=== PATIENT | female | born 1950 | race Caucasian/White ===

== ENCOUNTER → 2017-06-20 | Outpatient (CLI) | payer OTHER ==
[~2017-06-20] MED LIST: CONESTTC; Cheratussin AC118 ML PO; ERYT.5TO BOTHEYES; ESTMET PO; Imitrex50 MG; LASTACAFT3 ML OP; Multiple Vitam1 EAC1 PO; OXYACE5T PO; PROM25 PO; SUMA25 PO; Sudogest30 MG PO; VITAMIN D5000 UNIT PO
== END | disposition home or self-care (01) ==
LOC: PLD 13:36 → LAB SHORT 13:36
DX: D22.5 Melanocytic nevi of trunk (principal)
CPT/HCPCS: 88305

== ENCOUNTER → 2018-07-11 | Outpatient (CLI) | payer OTHER ==
[2018-07-13 16:06] LABS: HPV 16 Negative (Negative); HPV 18 Negative (Negative); HPV OTHER HR TYPES Negative (Negative)
== END | disposition home or self-care (01) ==
LOC: LAB 09:36 → LAB SHORT 09:36
PROVIDERS: Nurse Practitioner Obstetrics & Gynecology
DX: Z01.419 Encounter for gynecological examination (general) (routine) without abnormal findings (principal); Z91.89 Other specified personal risk factors, not elsewhere classified
CPT/HCPCS: 87624; G0123

== ENCOUNTER → 2018-07-17 | Outpatient (CLI) | payer OTHER | END | disposition home or self-care (01) | LOC: PLD 13:50 → LAB SHORT 13:50 | DX: D22.5 Melanocytic nevi of trunk (principal) | CPT/HCPCS: 88305 ==

== ENCOUNTER 2018-08-08 09:23 | Emergency (ER) | payer OTHER ==
[~2018-08-08] VITALS: Ht 170.2 cm; Wt 67.1 kg
[2018-08-08 10:03] LABS: BASOPHILS ABSOLUTE AUTO 0.02 K/mm3 (0.00-0.23); BASOPHILS PERCENT AUTO 0 % (0-2); EOSINOPHILS PERCENT AUTO 5 % (0-6); Hematocrit 44.7 % (33.0-51.0); Hemoglobin 14.3 g/dL (11.5-16.0); IMMATURE GRAN ABSOLUTE AUTO 0.02 K/mm3 (0.00-0.10); IMMATURE GRAN PERCENT AUTO 0 % (0-1); LYMPHOCYTES ABSOLUTE AUTO 2.33 K/mm3 (0.84-5.20); LYMPHOCYTES PERCENT AUTO 37 % (21-46); MONOCYTES ABSOLUTE AUTO 0.44 K/mm3 (0.16-1.47); MONOCYTES PERCENT AUTO 7 % (4-13); Mean Corpuscular HGB 29.8 pg (26.0-34.0); Mean Corpuscular Volume 93 fL (80-100); Mean Platelet Volume 10.9 fL (9.1-12.4); NEUTROPHILS ABSOLUTE AUTO 3.17 K/mm3 (1.96-9.15); NEUTROPHILS PERCENT AUTO 51 % (41-73); Platelet Count 220 K/mm3 (150-400); RDW Coefficient Variation 12.8 % (11.7-14.2); RDW Standard Deviation 43.9 fL (35.1-46.3); White Blood Cell Count 6.28 K/mm3 (4.00-11.30)
[2018-08-08 10:27] LABS: Alanine Aminotransfer (ALT/SGP 24 U/L (12-78); Albumin/Globulin Ratio 1.1 (0.8-1.8); Alk Phos 79 U/L (50-136); Anion Gap 6 mmol/L (6-16); Aspartate Aminotrans (AST/SGOT 14 U/L (12-37); Bilirubin, Total 0.5 mg/dL (0.1-1.0); Blood Urea Nitrogen 14 mg/dL (8-24); Bun/Creatinine Ratio 21.4 (12.0-20.0); CO2, Blood 27 mmol/L (21-32); Calcium, Blood 8.9 mg/dL (8.5-10.1); Chloride, Blood 108 mmol/L (98-108); Creatinine, Blood 0.65 mg/dL (0.40-1.00); Globulin, Blood 3.5 g/dL (2.2-4.0); Glomerular Filtration Rate >60 (60-); Glucose, Blood 92 mg/dL (70-99); Potassium, Blood 3.8 mmol/L (3.5-5.5); Sodium, Blood 141 mmol/L (136-145); Total Protein, Blood 7.5 g/dL (6.4-8.2); Troponin I <0.015 ng/mL (0.000-0.040)
== END 2018-08-08 13:07 | disposition home or self-care (01) ==
LOC: ER 09:23
PROVIDERS: Physician Assistant
DX: R07.9 Chest pain, unspecified (principal); Z79.899 Other long term (current) drug therapy; G43.909 Migraine, unspecified, not intractable, without status migrainosus
CPT/HCPCS: 36415; 71046; 80053; 83690; 84484; 85025; 99285-25

== ENCOUNTER 2020-05-21 08:54 | Inpatient (IN) | payer OTHER, MEDICARE ==
[~2020-05-21] VITALS: Ht 170.2 cm; Wt 71.7 kg
[~2020-05-21 08:54] MED LIST changes: -Imitrex50 MG; +Imitrex50 MG PO
[2020-05-21 10:53] LABS: Influenza A, PCR NEGATIVE (NEGATIVE); Influenza B, PCR NEGATIVE (NEGATIVE); Resp Syncytial Virus, PCR NEGATIVE (NEGATIVE); SARS-Cov-2 (COVID-19) PCR, MMC NEGATIVE (NEGATIVE)
[2020-05-21 11:45] LABS: BASOPHILS ABSOLUTE AUTO 0.02 K/mm3 (0.00-0.23); BASOPHILS PERCENT AUTO 0 % (0-2); EOSINOPHILS ABSOLUTE AUTO 0.09 K/mm3 (0.00-0.68); EOSINOPHILS PERCENT AUTO 1 % (0-6); Hematocrit 40.5 % (33.0-51.0); Hemoglobin 12.8 g/dL (11.5-16.0); IMMATURE GRAN ABSOLUTE AUTO 0.03 K/mm3 (0.00-0.10); IMMATURE GRAN PERCENT AUTO 0 % (0-1); LYMPHOCYTES ABSOLUTE AUTO 1.52 K/mm3 (0.84-5.20); LYMPHOCYTES PERCENT AUTO 22 % (21-46); MONOCYTES ABSOLUTE AUTO 0.32 K/mm3 (0.16-1.47); MONOCYTES PERCENT AUTO 5 % (4-13); Mean Corpuscular HGB 28.9 pg (26.0-34.0); Mean Corpuscular HGB Conc 31.6 g/dL (31.5-36.5); Mean Corpuscular Volume 91 fL (80-100); Mean Platelet Volume 10.8 fL (9.1-12.4); NEUTROPHILS ABSOLUTE AUTO 4.88 K/mm3 (1.96-9.15); NEUTROPHILS PERCENT AUTO 71 % (41-73); Platelet Count 211 K/mm3 (150-400); RDW Coefficient Variation 13.1 % (11.7-14.2); RDW Standard Deviation 43.8 fL (35.1-46.3); Red Blood Cell Count 4.43 M/mm3 (3.80-5.20); White Blood Cell Count 6.86 K/mm3 (4.00-11.30)
[2020-05-21 12:09] LABS: Alanine Aminotransfer (ALT/SGP 25 U/L (12-78); Albumin, Blood 3.3 g/dL (3.4-5.0); Alk Phos 73 U/L (50-136); Anion Gap 4 mmol/L (6-16); Aspartate Aminotrans (AST/SGOT 17 U/L (12-37); Bilirubin, Total 0.4 mg/dL (0.1-1.0); Blood Urea Nitrogen 8 mg/dL (8-24); Bun/Creatinine Ratio 12.7 (12.0-20.0); CO2, Blood 29 mmol/L (21-32); Calcium, Blood 8.6 mg/dL (8.5-10.1); Chloride, Blood 112 mmol/L (98-108); Creatinine, Blood 0.63 mg/dL (0.40-1.00); Globulin, Blood 3.3 g/dL (2.2-4.0); Glomerular Filtration Rate >60 (60-); Glucose, Blood 92 mg/dL (70-99); Potassium, Blood 3.8 mmol/L (3.5-5.5); Sodium, Blood 145 mmol/L (136-145); Total Protein, Blood 6.6 g/dL (6.4-8.2)
--- NOTE | 2020-05-21 18:10 | NUR ---
SUMMARY PT REPORTS PAIN IS AT TOLERABLE LEVEL AT REST , INCREASES WITH MOVEMENT, PT AWARE OF PLAN FOR SURGERY IN THE MORNING AND WILL BE NPO AFTER MIDNIGHT. PT DENIES ANY NUMBNESS OR TINGLING BLE. BLE WARM AND ABLE TO WIGGLE TOES
[2020-05-21 18:44] LABS: Source, Urine Catheter
[2020-05-21 18:57] LABS: Bilirubin, Urine Neg (Neg); Blood, Urine Neg (Neg); Glucose Qualitative, Urine Neg (Neg); Ketones, Urine Neg (Neg); Leukocyte Esterase, Urine 1+ (Neg); Nitrite, Urine Neg (Neg); Protein, Urine Neg (Neg); Urobilinogen, Urine NORM (Normal)
[2020-05-21 19:08] LABS: Appearance, Urine Clear (Clear); Bacteria Not Seen /hpf; Color, Urine Yellow (P-Yellow); Red Blood Cells, Urine Not Seen /hpf (0-2); Squamous Epithelial Cells Not Seen /hpf (Few); White Blood Cells, Urine Rare /hpf (0-5)
--- NOTE | 2020-05-22 03:47 | NUR ---
SHIFT SUMMARY S/P R FEMORAL FX, A/O X4, VSS, TOLERATING PO BUT NPO @ MIDNIGHT FOR SURGERY IN THE MORNING, C/O POOR PAIN MANAGEMENT, CONTACTED NIGHT HOSPITALIST FOR ADDITIONA PAIN MED ORDERS, PT REPORTS IMPROVEMENT IN PAIN MANAGEMENT. PT ENCOURAGED TO ALLOW REPOSITIONING, PT EDUCATED ON REPOSITIONING TO AID W/ PAIN MANAGEMENT/INCREASE COMFORT, PT ADAMANTLY REFUSED REPOSITIONING. NO ACUTE EVENTS THIS SHIFT. CALL LIGHT IN REACH, WILL CONTINUE TO MONITOR AND REPORT TO ONCOMING DAY RN.
--- NOTE | 2020-05-22 06:58 | NUR ---
History, Chart, Medications and Allergies reviewed before start of procedure. Patient confirms NPO status and agrees with scheduled surgery.
--- NOTE | 2020-05-22 07:40 | NUR ---
PATIENT RETURNED TO ROOM 217 VIA BED DUE TO SURGERY DELAY. REPORT GIVEN TO NURSE.
--- NOTE | 2020-05-22 08:02 | NUR ---
0709 RETURN TO ROOM FROM DAY SURGERY EQUIPMENT MALFUNCTION AT THIS TIME. PT WILL RETURN TO SURGERY LATER THIS MORNING
--- NOTE | 2020-05-22 10:49 | NUR ---
to day surgery pe bed. pts at bedside
--- NOTE | 2020-05-22 11:03 | NUR ---
History, Chart, Medications and Allergies reviewed before start of procedure. Patient confirms NPO status and agrees with scheduled surgery. Nozin nasal restaurant crew x3 ampules used to nares bilat per Dr. Melissa order.
--- NOTE | 2020-05-22 14:03 | NUR ---
ADMIT: 05/21/20 DISCHARGE: DX: Right Femoral fracture CC: [email or web address] BAN CALL: RESIDENCE: Home CAREGIVER: Jese Saunders, Spouse / Partner, DX: hyperlipidemia, osteoporosis, DME: none CCM: none HOME HEALTH: none SUMMARY: Admit: 05/21/20 05/22/20- Pt is scheduled for surgery today. Per [facility] case management social worker who met with pt in the ER. Her is wanting services with [email or web address] at discharge. He told [facility] that they would like to have a bedside commode and will need a walker upon d/c. Stopped by pt room, she was in surgery. Left BAN letter in pt' box in case she d/c over the weekend. Contacted Monica with [email or web address] to let her know pt's family wanting services with them. -frankie
--- NOTE | 2020-05-22 16:17 | NUR ---
1500 RETURN TO ROOM FROM PACU. RIGHT HIP AQUACEL DRY AND INTACT. POLAR PACK IN PLACE. PT DENIES ANY PAIN, NUMBNESS OR TINGLING. PT REPORTS MIDSTERNAL, NON RADIATING CHEST PAIN. PT DESCRIBES A "HEAVY, PRESSURE LIKE" FEELING. PT DENIES CHANGE IN PAINWITH PALPATION OR DEEP INSPIRATION. HOB ELEVATED 30 DEGREES AND PATIENT GIVEN CRACKERS AND WATER.
--- NOTE | 2020-05-22 16:20 | NUR ---
1515 PT REPORTS CHEST PRESSURE TO MIDSTERNAL AREA IS UNCHANGED.
--- NOTE | 2020-05-22 16:21 | NUR ---
[address] bennie tomas to notify of pts chest pain.
--- NOTE | 2020-05-22 16:22 | NUR ---
1530PT REPORTS PAIN TO CHEST HAS RESOLVED. CALL PLACED TO DR RHODA SMALLS TO NOTIFY THAT PAIN HAS RESOLVED. ORDERS RECEIVED. SPOKE WITH DR DOBBINS TO NOTIFY HER OF HOSPITALIST REPORT
--- NOTE | 2020-05-22 16:45 | NUR ---
TELEPHONE CALL WITH [facility] HOSPITALIST RE CHEST PAIN (RESOLVED). NEW ORDERS: TROPONIN NOW AND TROPONIN 0500 05/23/20.
--- NOTE | 2020-05-22 16:57 | NUR ---
8107 PT REPORTS PRESSURE 4/10 UNDER LEFT BREAST, BIOX 94-95% ON ROOM AIR, WITHIN 45-60 SECONDS OF REMOVING OXYGEN BIOX DROPS TO 84-85%, TUMS GIVEN. DR COLLIER , [facility], NOTIFIED OF PTS RE OCCURENCE OF CHEST PAIN AND BIOC. NEW ORDERS RECEIVED
--- NOTE | 2020-05-22 18:24 | NUR ---
TO RADIOLOGY VIA CART
--- NOTE | 2020-05-22 18:25 | NUR ---
PT DENIES ANY CHEST PAIN, PRESSURE OR DISCOMFORT AT THIS TIME. PT DENIES SOB. OXYGEN AT 2 LITERS NC, WHEN OXYGEN REMOVED PATIENTS BIOX DECREASES TO 84-85% WITHIN 1-2 MINUTES. LUNGS CLEAR.PT REPORTS PAIN TO RIGHT HIP IS VERY MINIMAL AND DENIES NEED FOR PAIN MED
[2020-05-23 03:54] LABS: BASOPHILS ABSOLUTE AUTO 0.02 K/mm3 (0.00-0.23); BASOPHILS PERCENT AUTO 0 % (0-2); EOSINOPHILS ABSOLUTE AUTO 0.05 K/mm3 (0.00-0.68); EOSINOPHILS PERCENT AUTO 0 % (0-6); Hematocrit 30.8 % (33.0-51.0); Hemoglobin 9.8 g/dL (11.5-16.0); IMMATURE GRAN ABSOLUTE AUTO 0.04 K/mm3 (0.00-0.10); IMMATURE GRAN PERCENT AUTO 0 % (0-1); LYMPHOCYTES ABSOLUTE AUTO 1.86 K/mm3 (0.84-5.20); LYMPHOCYTES PERCENT AUTO 17 % (21-46); MONOCYTES ABSOLUTE AUTO 0.65 K/mm3 (0.16-1.47); MONOCYTES PERCENT AUTO 6 % (4-13); Mean Corpuscular HGB 29.3 pg (26.0-34.0); Mean Corpuscular HGB Conc 31.8 g/dL (31.5-36.5); Mean Corpuscular Volume 92 fL (80-100); Mean Platelet Volume 10.5 fL (9.1-12.4); NEUTROPHILS ABSOLUTE AUTO 8.58 K/mm3 (1.96-9.15); NEUTROPHILS PERCENT AUTO 77 % (41-73); Platelet Count 168 K/mm3 (150-400); RDW Coefficient Variation 13.2 % (11.7-14.2); RDW Standard Deviation 44.4 fL (35.1-46.3); Red Blood Cell Count 3.35 M/mm3 (3.80-5.20)
[2020-05-23 04:18] LABS: Albumin, Blood 2.6 g/dL (3.4-5.0); Anion Gap 2 mmol/L (6-16); Blood Urea Nitrogen 7 mg/dL (8-24); CO2, Blood 32 mmol/L (21-32); Calcium, Blood 8.3 mg/dL (8.5-10.1); Chloride, Blood 108 mmol/L (98-108); Creatinine, Blood 0.58 mg/dL (0.40-1.00); Glomerular Filtration Rate >60 (60-); Glucose, Blood 103 mg/dL (70-99); Phosphorus, Blood 3.2 mg/dL (2.5-4.9); Potassium, Blood 4.2 mmol/L (3.5-5.5); Sodium, Blood 142 mmol/L (136-145); Troponin I <0.015 ng/mL (0.000-0.040)
--- NOTE | 2020-05-23 06:03 | NUR ---
SHIFT SUMMARY POD1 R NICOLASA, A/O X4, VSS, TOLERATING PO, VOIDING VIA PAN, TELEMETRY IN PLACE W/ REPORT OF SR, PAIN WELL MANAGED PER EMAR. NO ACUTE EVENTS THIS SHIFT. CALL LIGHT IN REACH, WILL CONTINUE TO MONITOR AND REPORT TO ONCOMING DAY RN.
[2020-05-23] MEDS ORDERED: Aspir 8181 MG PO (18:04)
[2020-05-23] MEDS ORDERED: DULCOLAX400 MG/5 M PO (18:07)
[2020-05-23] MEDS ORDERED: Percocet 5-3251 EACH PO (18:08)
--- NOTE | 2020-05-23 18:41 | NUR ---
DISCHARGE PT PROVIDED WITH WRITTEN AND VERBAL DISCHARGE INSTRUCTIONS; PT AND HER SPOUSE REPORTED UNDERSTANDING. DRESSINGS AND SCRIPTS PROVIDED. PAIN MANAGED, PT VOIDING AND TOLERATING PO PRIOR TO DISCHARGE. PT ESCORTED OUT IN W/C BY MOLDER TRIMMER.
== END 2020-05-23 18:41 | disposition home or self-care (01) | DRG 522 ==
LOC: ER 08:54 → SURS 08:55
PROVIDERS: Internal Medicine Gastroenterology; Orthopaedic Surgery; Physician Assistant; ADMIT Family Medicine
PROC: 0SR904A Replacement of Right Hip Joint with Ceramic on Polyethylene Synthetic Substitute, Uncemented, Open Approach (ICD-10-PCS; principal; 2020-05-22 11:30)
DX: S72.001A Fracture of unspecified part of neck of right femur, initial encounter for closed fracture (principal); W19.XXXA Unspecified fall, initial encounter; G43.909 Migraine, unspecified, not intractable, without status migrainosus; R09.02 Hypoxemia; M81.0 Age-related osteoporosis without current pathological fracture; E78.00 Pure hypercholesterolemia, unspecified; Z20.822 Contact with and (suspected) exposure to COVID-19
CPT/HCPCS: 0241U; 36415; 51702; 71045; 71260; 72170; 73502; 80053; 80069; 81001; 84484; 85025; 93005; 93010; 96374-59; 96375-59; 96376-59; 97110; 97116; 97162; 99285-25; A9270; C1713; C1776; G0378; J0171; J0690; J0735; J1100; J1170; J1885; J2370; J2405; J2704; J2710; J2795; J3010; J3360; J7120; Q9967

== ENCOUNTER → 2023-02-21 | Outpatient (CLI) | payer OTHER ==
[~2023-02-21] MED LIST changes: +Aspir 8181 MG PO; +DULCOLAX400 MG/5 M PO; +Percocet 5-3251 EACH PO
[2023-02-21 08:35] LABS: BASOPHILS ABSOLUTE AUTO 0.01 K/mm3 (0.00-0.23); BASOPHILS PERCENT AUTO 0 % (0-2); EOSINOPHILS ABSOLUTE AUTO 0.17 K/mm3 (0.00-0.68); EOSINOPHILS PERCENT AUTO 4 % (0-6); Hematocrit 43.5 % (33.0-51.0); IMMATURE GRAN ABSOLUTE AUTO 0.02 K/mm3 (0.00-0.10); IMMATURE GRAN PERCENT AUTO 0 % (0-1); LYMPHOCYTES ABSOLUTE AUTO 1.15 K/mm3 (0.84-5.20); LYMPHOCYTES PERCENT AUTO 25 % (21-46); MONOCYTES ABSOLUTE AUTO 0.35 K/mm3 (0.16-1.47); MONOCYTES PERCENT AUTO 7 % (4-13); Mean Corpuscular HGB 29.5 pg (26.0-34.0); Mean Corpuscular HGB Conc 32.2 g/dL (31.5-36.5); Mean Corpuscular Volume 92 fL (80-100); Mean Platelet Volume 10.2 fL (9.1-12.4); NEUTROPHILS PERCENT AUTO 64 % (41-73); Platelet Count 185 K/mm3 (150-400); RDW Coefficient Variation 12.9 % (11.7-14.2); RDW Standard Deviation 42.8 fL (35.1-46.3); Red Blood Cell Count 4.75 M/mm3 (3.80-5.20)
[2023-02-21 09:02] LABS: Albumin, Blood 3.7 g/dL (3.4-5.0); Albumin/Globulin Ratio 1.1 (0.8-1.8); Bilirubin, Total 0.4 mg/dL (0.1-1.0); Bun/Creatinine Ratio 10.5 (12.0-20.0); Calcium, Blood 9.1 mg/dL (8.5-10.1); Creatinine, Blood 0.76 mg/dL (0.40-1.00); Globulin, Blood 3.4 g/dL (2.2-4.0); Potassium, Blood 3.9 mmol/L (3.5-5.5); Thyroid Stimulating Hormone 1.767 uIU/mL (0.360-4.800); Total Protein, Blood 7.1 g/dL (6.4-8.2)
== END | disposition home or self-care (01) ==
LOC: LAB SHORT 08:31 → LAB 08:31
PROVIDERS: Physician Assistant
DX: R53.83 Other fatigue (principal); R82.81 Pyuria
CPT/HCPCS: 80053; 84443; 85025; 87086